=== PATIENT | female | born 1950 | race Caucasian/White ===

== ENCOUNTER 2020-10-16 09:21 | Outpatient (REF) | payer MEDICARE, OTHER, SELFPAY ==
[2020-10-16 09:47] LABS: COVID-19 Test Negative (Negative)
== END 2020-10-16 09:22 | disposition home or self-care (01) ==
LOC: HO.LAB 09:21
PROVIDERS: PCP Internal Medicine; Visit Provider Internal Medicine
DX: Z20.822 Contact with and (suspected) exposure to COVID-19 (principal)
CPT/HCPCS: 36415; 87635; C9803; U0003; U0005

== ENCOUNTER 2020-12-16 12:57 | Emergency (ER) | payer MEDICARE, OTHER, SELFPAY ==
--- NOTE | 2020-12-16 | ECG_ITS ---
Test Reason : CP Blood Pressure : / mmHG Vent. Rate : 063 BPM Atrial Rate : 063 BPM P-R Int : 140 ms QRS Dur : 094 ms QT Int : 410 ms P-R-T Axes : 061 062 030 degrees QTc Int : 419 ms Normal sinus rhythm Normal ECG When compared with ECG of 04-NOV-2013 17:52, No significant change was found Referred By: Generic ED Physician Electronically Signed By:ARNIE GASTELUM MD
--- NOTE | ~2020-12-16 | XR_ITS ---
EXAMINATION: XR CHEST CLINICAL INFORMATION: Chest pain. COMPARISON: Chest radiograph done on 11/04/2013. TECHNIQUE: Frontal view of the chest was obtained. FINDINGS: No significant abnormality is noted involving the heart, lungs, mediastinum, bony thorax or soft tissues. XR/XR chest 1V IMPRESSION: Unremarkable examination. No significant change since 11/04/2013.
[2020-12-16 14:45] VITALS: BP 147/78; PULSE 69; RESP 18; TEMP 36.7; O2SAT 96; BMI 32.4
[2020-12-16 15:19] VITALS: BP 140/72; PULSE 62; RESP 18; O2SAT 95
[2020-12-16 15:23] LABS: MANUAL DIFF FLAG NO
[2020-12-16 15:25] LABS: Basophils Absolute Auto 0.1 X10*3/uL (0.0-0.2); Basophils Percent Auto 1.1 % (0-2); Eosinophils Absolute Auto 0.3 X10*3/uL (0.0-0.4); Eosinophils Percent Auto 4.7 % (0-4); Hematocrit 41.4 % (37.0-47.0); Hemoglobin 14.1 g/dl (12.0-16.0); Imm Gran Abs Auto 0.01 X10*3/uL (0.00-0.03); Imm Gran Pct Auto 0.2 % (0.0-0.4); Lymphocytes Absolute Auto 1.8 X10*3/uL (1.2-4.9); Lymphocytes Percent Auto 28.6 % (20-40); Mean Corpuscular HGB Conc 34.1 g/dl (31.0-35.0); Mean Corpuscular Hemoglobin 31.1 pg (27.0-33.0); Mean Corpuscular Volume 91.2 fL (80.0-98.0); Mean Platelet Volume 10.9 fL (9.4-12.3); Monocytes Absolute Auto 0.6 X10*3/uL (0.1-1.2); Monocytes Percent Auto 9.2 % (2-11); Neutrophils Absolute Auto 3.6 x10*3/uL (2.0-8.3); Neutrophils Percent Auto 56.2 % (45-73); Platelet Count 238 X10*3/uL (160-400); Red Blood Count 4.54 X10*6/uL (4.20-5.50); Red Cell Distribution Width 11.9 % (11.0-16.0); White Blood Count 6.3 X10*3/uL (4.8-10.8)
[2020-12-16] MEDS: ondansetron HCL 4 MG/2 ML VIAL IVPUSH (15:26)
[2020-12-16 15:28] VITALS: BP 138/69; PULSE 61
[2020-12-16 15:30] VITALS: BP 146/68; PULSE 78
[2020-12-16 15:32] VITALS: BP 123/79; PULSE 80
[2020-12-16 15:52] LABS: B Type Natriuretic Peptide 35 pg/mL (<100); Troponin-I High Sensitivity < 3.5 ng/L (<3.5-17.0)
[2020-12-16 16:08] LABS: TSH reflex Free T4 2.48 uIU/mL (0.32-4.0)
[2020-12-16 16:10] LABS: Alanine Aminotransferase 25 U/L (0-31); Alkaline Phosphatase 75 U/L (39-117); Anion Gap 14 (12-20); Aspartate Amino Transferase 25 U/L (5-31); Bilirubin Direct 0.3 mg/dL (0.0-0.5); Bilirubin Total 0.9 mg/dL (0.0-1.0); Blood Urea Nitrogen 14 mg/dL (9-16); Calcium 9.4 mg/dL (8.4-10.2); Carbon Dioxide 23 mmol/L (22-29); Chloride 106 mmol/L (96-108); Creatinine Clr Calc Pharmacy 79.9; Estimated Glomerular Filt Rate > 60; Glucose Random 106 mg/dL (60-115); Magnesium 1.7 mg/dL (1.6-2.6); Sodium 139 mmol/L (135-145)
--- NOTE | 2020-12-16 16:14 | ED.CHESTPAIN ---
HPI - Chest Pain General Chief Complaint: Chest Pain Stated Complaint: HBP Time Seen by Provider: 12/16/20 14:48 Source: patient Mode of arrival: ambulatory History of Present Illness HPI narrative: 70-year-old female with a past medical history of CVA, hyperlipidemia, HTN, TIA, presenting to the ED complaining of CP radiating down left arm associated left arm tingling beginning last night. Reports associated lightheadedness/feeling foggy. States blood pressure was 160/90 at home and felt palpitations. Reports mild headache. Denies fever, chills, SOB, abdominal pain, nausea/vomiting, visual change/loss, pedal edema MD complaint: chest pain Related Data Allergies Allergy/AdvReac Type Severity Reaction Status Date / Time ibuprofen [IBUPROFEN] AdvReac Unknown STOMACH Unverified 10/25/19 15:49 UPSET Review of Systems Review of Systems: Constitutional: No Fever, No Chills, No Night Sweats, No Fatigue, No Malaise ENT/Mouth: No Ear Pain, No sore throat, No Rhinorrhea, No Swallowing Difficulty Eyes: No Eye Pain, No Swelling, No Discharge, No Vision Changes Cardiovascular: + Chest Pain, No SOB, No Dyspnea on Exertion, No Edema, No Palpitations Respiratory: No Cough, No Dyspnea Gastrointestinal: No Nausea, No Vomiting, No Diarrhea, No Constipation, No Abdominal pain Genitourinary: No Dysuria, No Urinary Frequency, No Flank Pain, No Urinary Flow Changes Musculoskeletal: No joint pain, No Myalgias, No Joint Swelling Skin: No Skin Lesions, No rash Neuro: No Weakness, + Numbness, + Paresthesias, No Loss of Consciousness, + lightheaded/dizzy described as feeling foggy, + Headache Yes all other systems are reviewed and are negative Neurologic: Denies Abnormal speech present [facility] Past Medical History Attestation statement: The following information was validated with the patient. Medical History (Updated 12/16/20 @ 16:54 by JODIE Moreno) CVA (cerebral vascular accident) High cholesterol HTN (hypertension) TIA (transient ischemic attack) Social History Social History Advance Directives: No Advance Directives Information Provided: Yes Physical Exam Vital Signs: Vital Signs: Last Vital Signs Temp 98.0 F 12/16/20 14:45 Pulse 80 12/16/20 15:32 Resp 18 12/16/20 15:19 BP 123/79 11/09/21 15:32 Pulse Ox 95 12/16/20 15:19 Body Mass Index 32.4 Const: General: cooperative, healthy appearing and no acute distress Orientation/consciousness: patient oriented x3 Limitations: no limitations HENMT: Head: Yes normal to inspection and Yes atraumatic Ears: hearing grossly normal bilaterally General nose exam: Normal external nose present Face and sinus: Yes normal facial exam Eyes: General: appearance normal, both eyes and all related structures Pupils: Equal, round and reactive pupils present EOM: EOMs intact bilaterally Neck: Neck: Yes normal visual inspection and Yes no meningeal signs Chest: Chest palpation & inspection: no tenderness Resp: Effort & Inspection: normal respiratory effort Auscultation: clear to auscultation bilaterally, no rales, no rhonchi and no wheezes Cardio: Rate: regular rate Heart sounds: S1 normal heart sound present and S2 normal heart sound present Peripheral pulses: radial pulses present GI: Inspection: Yes normal to inspection Palpation (GI): Soft to palpation, nontender, no guarding and not rigid : General: Yes no CVA tenderness Back/Spine/Pelvis: Back: no CVA tenderness Skin: Rashes: no rashes Wounds: no wounds Neuro: General: patient oriented x3, gait normal, tone normal, moves all extremities, no meningeal signs, no focal motor deficits and CN's II-XI intact bilaterally Cranial nerves: Yes CN's II-XII intact bilaterally and Yes Equal, round and reactive pupils present Cognition (Neuro): normal cognition Speech: No Abnormal speech present Gait exam (Neuro): Normal gait present Motor exam (neuro): 5/5 motor strength present throughout, Pronator motor function not present and no tremor noted Coordination: [id number] test normal Romberg Test: Negative Extrem: General: Yes normal to inspection, Yes no pedal edema and Yes no calf tenderness Course Course Course Narrative: -no leukocytosis, labs otherwise unremarkable, troponin negative XR chest 1V IMPRESSION: Unremarkable examination. No significant change since 11/04/2013. -orthostatic vital signs negative -repeat blood pressure 123/79 without intervention Discussed with patient worrisome signs and symptoms and strict return precautions in each compliance with home medications, verbalized understanding feel safe for discharge home at this time MDM - Chest Pain MDM Narrative Medical decision making narrative: 70-year-old female with a past medical history of CVA, hyperlipidemia, HTN, TIA, presenting to the ED complaining of CP radiating down left arm associated left arm tingling beginning last night. On exam vital signs stable, NAD, no focal neuro deficits, chest pain not reproducible, lungs CTA, no pedal edema/calf tenderness. Rule out ACS. Symptoms atypical for PE. Low concern for hypertensive urgency/emergency, BP 147/78 on ED arrival. Low concern for CVA/TIA/ICH. Rule out metabolic/infectious etiology Plan: EKG, labs, CXR, re-evaluate Medical Records Data Attestation: I reviewed the patient's medical records. Lab Data Attestation: I reviewed the patient's lab results. Result diagrams: 12/16/20 15:13 12/16/20 15:13 Labs: Lab Results 12/16/20 12/16/20 12/16/20 Range/Units 15:13 15:13 15:13 WBC 6.3 (4.8-10.8) X10*3/uL RBC 4.54 (4.20-5.50) X10*6/uL Hgb 14.1 (12.0-16.0) g/dl Hct 41.4 (37.0-47.0) % MCV 91.2 (80.0-98.0) fL MCH 31.1 (27.0-33.0) pg MCHC 34.1 (31.0-35.0) g/dl RDW 11.9 (11.0-16.0) % Plt Count 238 (160-400) X10*3/uL MPV 10.9 (9.4-12.3) fL Immature Gran % (Auto) 0.2 (0.0-0.4) % Neut % (Auto) 56.2 (45-73) % Lymph % (Auto) 28.6 (20-40) % Carson % (Auto) 9.2 (2-11) % Eos % (Auto) 4.7 H (0-4) % Baso % (Auto) 1.1 (0-2) % Lymph # (Auto) 1.8 (1.2-4.9) X10*3/uL Carson # (Auto) 0.6 (0.1-1.2) X10*3/uL Eos # (Auto) 0.3 (0.0-0.4) X10*3/uL Baso # (Auto) 0.1 (0.0-0.2) X10*3/uL Abs Immat Gran (auto) 0.01 (0.00-0.03) X10*3/uL Absolute Neuts (auto) 3.6 (2.0-8.3) x10*3/uL Absolute Nucleated RBC 0.000 (0.0-0.012) X10*3/uL Nucleated RBC % (auto) 0.0 (0.0-0.2) /100WBC Sodium 139 (135-145) mmol/L Potassium 4.0 (3.3-5.1) mmol/L Chloride 106 (96-108) mmol/L Carbon Dioxide 23 (22-29) mmol/L Anion Gap 14 (12-20) BUN 14 (9-16) mg/dL Creatinine 0.74 (0.5-1.4) mg/dL Estim Creat Clear Calc 79.9 Estimated GFR > 60 Random Glucose 106 (60-115) mg/dL Calcium 9.4 (8.4-10.2) mg/dL Magnesium 1.7 (1.6-2.6) mg/dL Total Bilirubin 0.9 (0.0-1.0) mg/dL Direct Bilirubin 0.3 (0.0-0.5) mg/dL AST 25 (5-31) U/L ALT 25 (0-31) U/L Alkaline Phosphatase 75 (39-117) U/L Troponin I High Sens < 3.5 (<3.5-17.0) ng/L B-Natriuretic Peptide 35 (<100) pg/mL Total Protein 7.0 (6.5-8.0) g/dL Albumin 4.0 (3.5-5.0) g/dL TSH 2.48 (0.32-4.0) uIU/mL ECG Data ECG #1: Attestation: I personally reviewed and interpreted this ECG as follows: ECG interpretation date: 12/16/20 ECG interpretation time: 14:55 Interpretation: EKG normal sinus rhythm with rate of 63. QTC 419. Nonischemic/no STEMI Discharge Plan Discharge Clinical Impression: Chest pain Qualifiers: Chest pain type: unspecified Qualified Code(s): R07.9 - Chest pain, unspecified Patient Disposition: Home, Self-Care Instructions: Chest Pain (ED) Additional Instructions: Your blood work and chest x-ray were reassuring today in the emergency department Please continue taking home prescribed medication Please follow-up with her doctor If her symptoms persist or worsen, he develop constant worsening chest pain/shortness of breath, persistent headache please return to the ED Referrals: Sloan Knox MD [Primary Care Provider] - 2 days
[2020-12-16] MEDS: Acetaminophen 325 MG TABLET 650 MG PO (16:27)
[2020-12-16] MEDS: Butalb/Acetamin/Caff 50/325/40 TABLET 1 TAB PO (16:27)
== END 2020-12-16 17:14 | disposition home or self-care (01) ==
PROVIDERS: Physician Assistant; Emergency Provider Emergency Medicine; PCP Internal Medicine
DX: R07.9 Chest pain, unspecified (principal); R20.2 Paresthesia of skin; I10 Essential (primary) hypertension; E78.5 Hyperlipidemia, unspecified; Z86.73 Personal history of transient ischemic attack (TIA), and cerebral infarction without residual deficits
CPT/HCPCS: 36415; 71045; 80048; 80076; 83735; 83880; 84443; 84484; 85025; 93005; 96374; 99284; J2405